=== PATIENT | male | born 1980 | race Caucasian/White ===

== ENCOUNTER 2018-08-31 13:05 | Outpatient (CLI) | payer OTHER | END 2018-08-31 13:06 | disposition home or self-care (01) | LOC: C.LAB 13:05 ==

== ENCOUNTER 2018-10-10 15:16 | Emergency (ER) | payer OTHER ==
[2018-10-10 15:30] VITALS: RESP 18
[2018-10-10] MEDS ORDERED: Sodium Chloride 0.9% 1,000 ML IV STA ×2 (15:31→17:18)
--- NOTE | 2018-10-10 16:13 | CT ---
Date of service: 10/10/2018 PROCEDURE: CT HEAD WITHOUT CONTRAST. HISTORY: dizziness COMPARISON: None available. TECHNIQUE: Axial computed tomography images were obtained through the head/brain without intravenous contrast. Radiation dose: Total exam DLP = 1020.76 mGy-cm. This CT exam was performed using one or more of the following dose reduction techniques: Automated exposure control, adjustment of the mA and/or kV according to patient size, and/or use of iterative reconstruction technique. FINDINGS: HEMORRHAGE: No intracranial hemorrhage. BRAIN: No mass effect or edema. No atrophy or chronic microvascular ischemic changes. VENTRICLES: Unremarkable. No hydrocephalus. CALVARIUM: Unremarkable. PARANASAL SINUSES: Unremarkable as visualized. No significant inflammatory changes. MASTOID AIR CELLS: Unremarkable as visualized. No inflammatory changes. OTHER FINDINGS: None. IMPRESSION: Normal CT of the Head.
[2018-10-10 16:30] LABS: EOS # 0.2 K/uL (0.0-0.7); EOS % 4.4 % (0.0-4.0); HEMOGLOBIN 13.9 g/dL (12.0-18.0); LYMPH # 1.8 K/uL (1.0-4.3); LYMPH % 44.1 % (20.0-40.0); MEAN CELL VOLUME 87.9 fL (80.0-94.0); MEAN CORPUSCULAR HEMOGLOBIN 29.6 pg (27.0-31.0); MEAN CORPUSCULAR HGB CONC 33.7 g/dL (33.0-37.0); MEAN PLATELET VOLUME 9.1 fL (7.2-11.7); MONO # 0.4 K/uL (0.0-0.8); MONO % 10.5 % (0.0-10.0); NEUT # 1.6 K/uL (1.8-7.0); RBC 4.67 Mil/uL (4.40-5.90); RED CELL DISTRIBUTION WIDTH 13.6 % (11.5-14.5)
--- NOTE | 2018-10-10 16:31 | RAD ---
Date of service: 10/10/2018 PROCEDURE: CHEST RADIOGRAPH, 1 VIEW HISTORY: dizziness COMPARISON: None available. FINDINGS: LUNGS: Clear. PLEURA: No pneumothorax or pleural fluid seen. CARDIOVASCULAR: No aortic atherosclerotic calcification present. Normal. OSSEOUS STRUCTURES: No significant abnormalities. VISUALIZED UPPER ABDOMEN: Normal. OTHER FINDINGS: None. IMPRESSION: No active disease.
[2018-10-10] MEDS ORDERED: Sodium Chloride 0.9% 1,000 ML ONE ×2 (16:40→17:33)
[2018-10-10 16:42] LABS: ALB/GLOB RATIO 1.6 (1.0-2.1); ALBUMIN 4.4 g/dL (3.5-5.0); ALT/SGPT 33 U/L (21-72); AST/SGOT 24 U/L (17-59); BLOOD UREA NITROGEN 20 mg/dL (9-20); CALCIUM 9.5 mg/dl (8.6-10.4); GFR NON-AFRICAN AMERICAN > 60; LIPASE 55 U/L (23-300)
[2018-10-10 17:11] LABS: BARBITURATES, UR NEGATIVE (NEGATIVE); BENZODIAZEPINES, UR NEGATIVE (NEGATIVE); OPIATES, UR NEGATIVE (NEGATIVE); PHENCYCLIDINE, UR NEGATIVE (NEGATIVE)
[2018-10-10] MEDS ORDERED: Iohexol 240 (50 ml) PO STA (17:16)
[2018-10-10] MEDS ORDERED: Iohexol 240 (50 ml) ONE (17:32)
[2018-10-10 17:53] LABS: INR 1.1; PROTHROMBIN TIME 12.2 SECONDS (9.7-12.2)
[2018-10-10] MEDS ORDERED: Iodixanol 320 MG/ML 100 ML BOTTLE IV ONE (18:37)
--- NOTE | 2018-10-10 19:19 | C.PDOC ---
History Of Present Illness Patient c/o severe dizziness, associated with nausea. Patient sts he feels worse today. Patient also c/o constipation for 5-7 days and abdominal pain. <Donna Cui - Last Filed: 10/10/18 19:17> History Per: Patient History/Exam Limitations: no limitations Onset/Duration Of Symptoms: Days Current Symptoms Are (Timing): Still Present Associated Symptoms Preceding Syncopal Episode: No Predromal Symptoms (Sudden Onset) Seizure Or Post-ictal Symptoms: None <Donna Cui - Last Filed: 10/10/18 19:17> <Georgia Fuller - Last Filed: 10/10/18 21:08> Time Seen by Provider: 10/10/18 15:30 Chief Complaint (Nursing): Dizziness/Lightheaded Past Medical History Vital Signs: Last Vital Signs Temp 98.9 F 10/10/18 15:27 Pulse 75 10/10/18 15:27 Resp 18 10/10/18 15:27 BP 110/74 10/10/18 15:27 Pulse Ox 100 10/10/18 15:27 Primary Care Provider: Clinic,Med Surg Family History: States: No Known Family Hx - Social History Hx Alcohol Use: No Hx Substance Use: No - Immunization History Hx Tetanus Toxoid Vaccination: No Hx Influenza Vaccination: No Hx Pneumococcal Vaccination: No <Donna Cui - Last Filed: 10/10/18 19:17> Vital Signs: Last Vital Signs Temp 98.9 F 10/10/18 15:27 Pulse 75 10/10/18 15:27 Resp 18 10/10/18 15:27 BP 110/74 10/10/18 15:27 Pulse Ox 100 10/10/18 19:27 <Georgia Fuller - Last Filed: 10/10/18 21:08> Review Of Systems Except As Marked, All Systems Reviewed And Found Negative. <Donna Cui - Last Filed: 10/10/18 19:17> Physical Exam - Physical Exam Appears: Well, Non-toxic, No Acute Distress Skin: Normal Color, No Rash Head: Atraumatic, Normacephalic Eye(s): bilateral: Normal Inspection, PERRL, EOMI Nose: Normal, No Discharge Neck: Supple Chest: No Tenderness Cardiovascular: Rhythm Regular, Rhythm Irregular Respiratory: Normal Breath Sounds Gastrointestinal/Abdominal: Tenderness (diffuse), Distention (mild) Extremity: Normal ROM, No Tenderness Neurological/Psych: Oriented x3, Normal Speech, Normal Cognition, Normal Motor, Normal Sensation <Donna Cui - Last Filed: 10/10/18 19:17> ED Course And Treatment - Laboratory Results Result Diagrams: 10/10/18 16:27 10/10/18 16:27 Lab Results: PT 12.2 SECONDS (9.7-12.2) 10/10/18 16:46 INR 1.1 10/10/18 16:46 APTT 30.0 SECONDS (21-34) 10/10/18 16:46 Troponin I < 0.0120 ng/mL (0.00-0.120) 10/10/18 16:27 Total Bilirubin 0.7 mg/dL (0.2-1.3) 10/10/18 16:27 AST 24 U/L (17-59) 10/10/18 16:27 ALT 33 U/L (21-72) 10/10/18 16:27 Alkaline Phosphatase 38 U/L (38-126) D 10/10/18 16:27 Total Protein 7.1 g/dL (6.3-8.3) 10/10/18 16:27 Albumin 4.4 g/dL (3.5-5.0) 10/10/18 16:27 Globulin 2.7 gm/dL (2.2-3.9) 10/10/18 16:27 Albumin/Globulin Ratio 1.6 (1.0-2.1) 10/10/18 16:27 Lipase 55 U/L (23-300) 10/10/18 16:27 O2 Sat by Pulse Oximetry: 100 - Other Rad CXR X-Ray: Viewed By Me, Read By Radiologist Interpretation: Accession No. : [id number]. Patient Name / ID : POLA Tabares / [id number]. Exam Date : 10/10/2018 15:43:01 ( Approved ). Study Comment : Sex / Age : M / 37Y. Creator : Cheko Chau MD. Dictator : Cheko Chau MD. Third Cook : Mail Rider : Cheko Chau MD. Approver2 : Report Date : 10/10/2018 16:28:04. My Comment : . Date of service: 10/10/2018. PROCEDURE: CHEST RADIOGRAPH, 1 VIEW. HISTORY: dizziness. COMPARISON: None available. FINDINGS: LUNGS: Clear. PLEURA: No pneumothorax or pleural fluid seen. CARDIOVASCULAR: No aortic atherosclerotic calcification present. Normal. OSSEOUS STRUCTURES: No significant abnormalities. VISUALIZED UPPER ABDOMEN: Normal. OTHER FINDINGS: None. IMPRESSION: No active disease. - CT Scan/US head CT Other Rad Studies (CT/US): Read By Radiologist, Radiology Report Reviewed CT/US Interpretation: Accession No. : [id number]. Patient Name / ID : POLA Tabares / [id number]. Exam Date : 10/10/2018 15:53:29 ( Approved ). Study Comment : Sex / Age : M / 37Y. Creator : Boaz [place]. Dictator : Cheko Chau MD. Third Cook : Mail Rider : Cheko Chau MD. Approver2 : Report Date : 10/10/2018 15:59:13. My Comment : . Date of service: 10/10/2018. PROCEDURE: CT HEAD WITHOUT CONTRAST. HISTORY: dizziness. COMPARISON: None available. TECHNIQUE: Axial computed tomography images were obtained through the head/brain without intravenous contrast. Radiation dose: Total exam DLP = 1020.76 mGy-cm. This CT exam was performed using one or more of the following dose reduction techniques: Automated exposure control, adjustment of the mA and/or kV according to patient size, and/or use of iterative reconstruction technique. FINDINGS: HEMORRHAGE: No intracranial hemorrhage. BRAIN: No mass effect or edema. No atrophy or chronic mi crovascular ischemic changes. VENTRICLES: Unremarkable. No hydrocephalus. CALVARIUM: Unremarkable. PARANASAL SINUSES: Unremarkable as visualized. No significant inflammatory changes. MASTOID AIR CELLS: Unremarkable as visualized. No inflammatory changes. OTHER FINDINGS: None. IMPRESSION: Normal CT of the Head. Progress Note: Labs, CT head and CT abdomen ordered. IVF and zofran given. At 19:00 case was signed out to . <Donna Cui - Last Filed: 10/10/18 19:17> - Laboratory Results Result Diagrams: 10/10/18 16:27 10/10/18 16:27 Lab Results: PT 12.2 SECONDS (9.7-12.2) 10/10/18 16:46 INR 1.1 10/10/18 16:46 APTT 30.0 SECONDS (21-34) 10/10/18 16:46 Troponin I < 0.0120 ng/mL (0.00-0.120) 10/10/18 16:27 Total Bilirubin 0.7 mg/dL (0.2-1.3) 10/10/18 16:27 AST 24 U/L (17-59) 10/10/18 16:27 ALT 33 U/L (21-72) 10/10/18 16:27 Alkaline Phosphatase 38 U/L (38-126) D 10/10/18 16:27 Total Protein 7.1 g/dL (6.3-8.3) 10/10/18 16:27 Albumin 4.4 g/dL (3.5-5.0) 10/10/18 16:27 Globulin 2.7 gm/dL (2.2-3.9) 10/10/18 16:27 Albumin/Globulin Ratio 1.6 (1.0-2.1) 10/10/18 16:27 Lipase 55 U/L (23-300) 10/10/18 16:27 - CT Scan/US ct abd/pelvis Other Rad Studies (CT/US): Read By Radiologist, Radiology Report Reviewed CT/US Interpretation: Name:SOL ESCALONA Exam Date:October 10, 2018 7:45:20 PM EDT. Modality Type:CT. Description:CT - ABDOMEN AND PELVIS WITH CORONAL AND SAGITTAL MPRS. Gender:M Laterality:Not applicable. :82 Referring Physician:Donna Cui (TEO). EXAM: CT Abdomen and Pelvis with IV and oral contrast agent. CLINICAL HISTORY: Abd pain/ distention/ comstipation. TECHNIQUE: Axial computed tomography images of the abdomen and pelvis with intravenous contrast. 0.00 mGy-cm. CONTRAST: With; OMNI 240 & 100MLS VISI 320. COMPARISON: None provided. FINDINGS: LUNG BASES: The lung bases appear clear. No pleural effusions are seen. LIVER: There is mild hepatomegaly. The liver measured 16.7 cm in the midclavicular line. GALLBLADDER AND BILE DUCTS: The gallbladder appears within normal limits. No radioopaque gallstones are seen. No biliary ductal dilatation is evident. PANCREAS: Unremarkable. SPLEEN: Unremarkable. ADRENAL GLANDS: Unremarkable. KIDNEYS, URETERS, AND BLADDER: There is ectopic position of fused kidneys noted in the upper midline pelvis; which represent normal anatomical variant findings. There is no hydronephrosis or hydroureter. No urinary calculi are seen. The urinary bladder appeared normal in size and configuration. STOMACH AND BOWEL: Unremarkable appearance of the stomach and bowel. No evidence of bowel obstruction. No evidence suggesting enteritis or colitis. APPENDIX: No evidence of acute appendicitis on CT examination. PERITONEUM: No free fluid. No free air. LYMPH NODES: No lymphadenopathy is ev ident. REPRODUCTIVE: Unremarkable as visualized. VASCULATURE: No evidence of abdominal aortic aneurysm. BONES: No aggressive appearing osseous lesion. No acute osseous pathology evident. IMPRESSION: 1. No acute intra-abdominal or pelvic abnormality. 2. 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 3. Mild he patomegaly. . Electronically signed on October 10, 2018 8:48:02 PM EDT by: Ralph Dixon M.D., M.B.A., Certified By [employer]. Fellowship Trained MRI and CT Specialist <Georgia Fuller - Last Filed: 10/10/18 21:08> Disposition - Disposition Disposition Time: 19:24 <Donna Cui - Last Filed: 10/10/18 19:17> Counseled Patient/Family Regarding: Diagnosis, Need For Followup, Rx Given - Disposition Disposition Time: 21:00 <Georgia Fuller - Last Filed: 10/10/18 21:08> - Disposition Referrals: [facility] [Outside] Disposition: HOME/ ROUTINE Condition: STABLE Prescriptions: Docusate [Colace] 100 mg PO DAILY #30 cap Magnesium Citrate [Citrate of Mag] 300 ml PO ONCE PRN #1 bottle PRN Reason: Constipation Ondansetron ODT [Zofran ODT] 1 odt PO BID PRN #15 odt PRN Reason: Nausea/Vomiting Instructions: Nausea and Vomiting, Adult (DC), Constipation, Adult (DC) Forms: [employer] (Lithuanian) Print Language: [place] - Clinical Impression Clinical Impression: Dizziness, Abdominal pain, Constipation Physician Patient Turnover Patient Signed Over To: Georgia Fuller Handoff Comments: pending CT abdomen/pelvis and dispo <Donna Cui - Last Filed: 10/10/18 19:17>
[2018-10-10 21:24] VITALS: BP 114/76; PULSE 80; TEMP 97.6; O2SAT 98
--- NOTE | 2018-10-11 08:36 | CT ---
Date of service: 10/10/2018 PROCEDURE: CT Abdomen and Pelvis with contrast HISTORY: Pain/distention/constipation COMPARISON: None. TECHNIQUE: CT scan of the abdomen and pelvis was performed after administration of intravenous contrast. Oral contrast was not administered. Coronal and sagittal reformatted images were obtained. Contrast dose: 100 mL Visipaque 320 Radiation dose: Total exam DLP = 768.18 mGy-cm. This CT exam was performed using one or more of the following dose reduction techniques: Automated exposure control, adjustment of the mA and/or kV according to patient size, and/or use of iterative reconstruction technique. FINDINGS: LOWER THORAX: There is a 3 mm nodule in the right. Otherwise visualized lungs are clear. LIVER: Mild hepatomegaly and fatty liver. Normal homogeneous enhancement. No gross lesion or ductal dilatation. GALLBLADDER AND BILE DUCTS: Well distended. No calcified gallstones, wall thickening or pericholecystic fluid. PANCREAS: Normal in size with homogeneous enhancement. No gross lesion or ductal dilatation. SPLEEN: Mild splenomegaly. Normal homogeneous enhancement. ADRENALS: No discrete nodule. KIDNEYS AND URETERS: Fused ectopic kidneys in the midline pelvis, an anatomic variant. No hydronephrosis. No solid mass. VASCULATURE: No aortic aneurysm. There are no aortic atherosclerotic calcifications or mural plaque present. BOWEL: Evaluation of the bowel is limited in the absence of oral contrast. The small bowel loops are normal in caliber. The colon is grossly normal in appearance. No bowel wall thickening or obstruction. APPENDIX: Normal appendix. PERITONEUM: No free fluid. No free air. LYMPH NODES: No enlarged lymph nodes. BLADDER: Well distended and normal in appearance. REPRODUCTIVE: The uterus is normal in size. BONES: No acute fracture. Within normal limits for the patient's age. OTHER FINDINGS: None. IMPRESSION: No acute abdominal or pelvic abnormality. 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 Mild hepatosplenomegaly and fatty liver. A preliminary report was provided by [employer].
--- NOTE | 2018-10-11 21:52 | CARD ---
APPROVED REPORT Date of service: 10/10/2018 EKG Measurement Heart [id number] <Conclusion> Normal sinus rhythm Rightward axis Borderline ECG
== END 2018-10-10 21:39 | disposition home or self-care (01) ==
LOC: C.ER 15:16
DX: R42 Dizziness and giddiness (principal); K59.00 Constipation, unspecified; R10.9 Unspecified abdominal pain
CPT/HCPCS: 36415; 70450; 71045; 74177; 80053; 80324; 80345; 80346; 80349; 80353; 80358; 80361; 82550; 82553; 82948; 83690; 83992; 84484; 85025; 85610; 85730; 93005; 96361; 96374; 99285; J2405; J7030; Q9966; Q9967